=== PATIENT | male | born 1970 | race Hispanic/Latino ===

== ENCOUNTER 2022-03-12 12:14 | Outpatient (CLI) | payer OTHER ==
[2022-03-12] MEDS ORDERED: Magnevist 469MG/ML 20 ML VIAL ONE (13:25)
== END 2022-03-12 12:15 | disposition home or self-care (01) ==
LOC: MRI 12:14
PROVIDERS: ATTEND Psychiatry & Neurology Neurology
DX: R56.9 Unspecified convulsions (principal); G93.89 Other specified disorders of brain; G31.9 Degenerative disease of nervous system, unspecified; I25.2 Old myocardial infarction
CPT/HCPCS: 70553; 95816; 95957; A9579